=== PATIENT | female | born 1995 | race Caucasian/White ===

== ENCOUNTER 2018-08-25 03:45 | Emergency (ER) | payer OTHER ==
[~2018-08-25] VITALS: Ht 160 cm; Wt 70.8 kg
[2018-08-25] MEDS ORDERED: EFFEXOR XR37.5 MG PO (04:13)
[2018-08-25] MEDS ORDERED: NF (04:13)
[2018-08-25 07:33] VITALS: BP 105/59
== END 2018-08-25 07:35 | disposition home or self-care (01) ==
LOC: ER 03:45
DX: S09.90XA Unspecified injury of head, initial encounter (principal); F10.129 Alcohol abuse with intoxication, unspecified; W18.30XA Fall on same level, unspecified, initial encounter; Y93.89 Activity, other specified; Y92.89 Other specified places as the place of occurrence of the external cause; Y99.8 Other external cause status